=== PATIENT | male | born 1955 | race Caucasian/White ===

== ENCOUNTER 2019-03-27 18:50 | Emergency (ER) | payer OTHER ==
[~2019-03-27] VITALS: Ht 185.4 cm; Wt 88.0 kg
[2019-03-27 19:23] LABS: ABSOLUTE NEUTROPHILS 2.7 thou/uL (1.4-8.2); BASOPHILS 0.6 % (0.0-2.0); EOSINOPHILS 2.9 % (0.0-3.0); HEMATOCRIT 43.8 % (42.0-52.0); LYMPHOCYTES 32.8 % (24.0-44.0); MCH 34.5 pg (26.0-34.0); MCHC 34.2 g/dL (28.0-37.0); MCV 100.9 fL (80.0-100.0); PLATELET COUNT 120 thou/uL (150-400); POLYS 54.7 % (36.0-66.0); RBC 4.34 mil/uL (4.50-6.00); RDW 12.9 % (10.5-14.5); WBC 4.9 thou/uL (4.0-11.0)
[2019-03-27 19:23] LABS: URINE BILIRUBIN NEGATIVE (Negative); URINE BLOOD NEGATIVE (Negative); URINE CLARITY CLEAR; URINE COLOR YELLOW; URINE GLUCOSE-RANDOM* NEGATIVE (Negative); URINE KETONES NEGATIVE (Negative); URINE LEUKOCYTES NEGATIVE (Negative); URINE NITRITE NEGATIVE (Negative); URINE PROTEIN (DIPSTICK) NEGATIVE (Negative); URINE UROBILINOGEN 0.2 E.U./dl (0.2-1.0)
[2019-03-27 19:26] LABS: ANION GAP 13 mmol/L (7-16); BUN 16 mg/dL (7-18); CALCIUM 8.6 mg/dL (8.5-10.1); CHLORIDE 100 mmol/L (98-107); CO2 23 mmol/L (21-32); GLUCOSE 130 mg/dL (74-106); POTASSIUM 3.8 mmol/L (3.5-5.1); SODIUM 136 mmol/L (136-145)
[2019-03-27 19:36] LABS: ALBUMIN 3.6 g/dL (3.4-5.0); TOTAL BILIRUBIN 0.4 mg/dL (<0.1-1.0); TOTAL PROTEIN 6.6 g/dL (6.4-8.2); TROPONIN-I <0.06 ng/mL (<0.06)
[2019-03-27 19:57] LABS: SGOT 57 U/L (15-37); SGPT 58 U/L (30-65)
[2019-03-27 21:20] VITALS: BP 146/95
== END 2019-03-27 21:20 | disposition home or self-care (01) ==
LOC: ER 18:50
PROVIDERS: Emergency Medicine
DX: K52.9 Noninfective gastroenteritis and colitis, unspecified (principal); I10 Essential (primary) hypertension; K21.9 Gastro-esophageal reflux disease without esophagitis; E78.5 Hyperlipidemia, unspecified; F41.9 Anxiety disorder, unspecified; F32.9 Major depressive disorder, single episode, unspecified; F17.200 Nicotine dependence, unspecified, uncomplicated

== ENCOUNTER 2020-03-03 17:43 | Emergency (ER) | payer OTHER ==
[~2020-03-03] VITALS: Ht 185.4 cm; Wt 83.9 kg
[2020-03-03 19:35] LABS: URINE BILIRUBIN NEGATIVE (Negative); URINE BLOOD TRACE (Negative); URINE CLARITY CLEAR; URINE COLOR YELLOW; URINE GLUCOSE-RANDOM* NEGATIVE (Negative); URINE KETONES NEGATIVE (Negative); URINE LEUKOCYTES-REFLEX NEGATIVE (Negative); URINE NITRITE-REFLEX NEGATIVE (Negative); URINE PROTEIN (DIPSTICK) NEGATIVE (Negative); URINE UROBILINOGEN 0.2 E.U./dl (0.2-1.0)
[2020-03-03 19:43] LABS: ABSOLUTE NEUTROPHILS 3.6 thou/uL (1.4-8.2); BASOPHILS 0.8 % (0.0-2.0); EOSINOPHILS 0.9 % (0.0-3.0); HEMATOCRIT 45.9 % (42.0-52.0); HEMOGLOBIN 15.6 gm/dL (14.0-18.0); LYMPHOCYTES 40.3 % (24.0-44.0); MCH 31.9 pg (26.0-34.0); MCHC 33.9 g/dL (28.0-37.0); MCV 94.1 fL (80.0-100.0); MONOCYTES 5.5 % (1.0-8.0); PLATELET COUNT 254 thou/uL (150-400); POLYS 52.5 % (36.0-66.0); RBC 4.88 mil/uL (4.50-6.00); RDW 16.5 % (10.5-14.5); WBC 6.9 thou/uL (4.0-11.0)
[2020-03-03 19:56] LABS: CALCIUM 8.1 mg/dL (8.5-10.1); CREATININE 0.9 mg/dL (0.7-1.3); MAGNESIUM 2.3 mg/dL (1.8-2.4); POTASSIUM 3.8 mmol/L (3.5-5.1)
[2020-03-03 19:58] LABS: ALBUMIN 4.1 g/dL (3.4-5.0); DIRECT BILIRUBIN 0.2 mg/dL (<0.1-0.2); TOTAL BILIRUBIN 0.4 mg/dL (0.2-1.0); TOTAL PROTEIN 6.9 g/dL (6.4-8.2)
[2020-03-03] MEDS ORDERED: ZOFRAN ODT4 MG PO (21:42)
[2020-03-03 21:47] VITALS: BP 157/96
== END 2020-03-03 21:48 | disposition home or self-care (01) ==
LOC: ER 17:43
PROVIDERS: Emergency Medicine
DX: R11.2 Nausea with vomiting, unspecified (principal); R19.7 Diarrhea, unspecified; I10 Essential (primary) hypertension; K21.9 Gastro-esophageal reflux disease without esophagitis; E78.5 Hyperlipidemia, unspecified; F17.210 Nicotine dependence, cigarettes, uncomplicated

== ENCOUNTER 2020-03-10 10:00 | Emergency (ER) | payer OTHER ==
[~2020-03-10] VITALS: Ht 180.3 cm; Wt 81.7 kg
[~2020-03-10 10:00] MED LIST: ZOFRAN ODT4 MG PO
[2020-03-10 10:18] LABS: ABSOLUTE NEUTROPHILS 3.9 thou/uL (1.4-8.2); BASOPHILS 0.7 % (0.0-2.0); EOSINOPHILS 0.3 % (0.0-3.0); HEMATOCRIT 41.9 % (42.0-52.0); HEMOGLOBIN 14.2 gm/dL (14.0-18.0); LYMPHOCYTES 27.9 % (24.0-44.0); MCH 32.3 pg (26.0-34.0); MCHC 33.9 g/dL (28.0-37.0); MCV 95.3 fL (80.0-100.0); MONOCYTES 5.9 % (1.0-8.0); PLATELET COUNT 169 thou/uL (150-400); POLYS 65.2 % (36.0-66.0); RDW 17.1 % (10.5-14.5)
[2020-03-10 10:27] LABS: CREATININE 0.9 mg/dL (0.7-1.3); POTASSIUM 4.2 mmol/L (3.5-5.1)
[2020-03-10 10:33] LABS: ALBUMIN 3.6 g/dL (3.4-5.0); TOTAL BILIRUBIN 0.9 mg/dL (0.2-1.0); TOTAL PROTEIN 6.7 g/dL (6.4-8.2)
[2020-03-10] MEDS ORDERED: HYDRALAZINE 5050 MG PO (10:42)
[2020-03-10] MEDS ORDERED: LOSARTAN POTASS50 MG PO (10:42)
[2020-03-10] MEDS ORDERED: ABILIFY 5 MG TAB5 MG PO (10:42)
[2020-03-10] MEDS ORDERED: FLEXERIL PO (10:43)
[2020-03-10] MEDS ORDERED: CARVEDILOL25 MG PO (10:43)
[2020-03-10] MEDS ORDERED: LIPITOR 20 MG T20 M1 PO (10:44)
[2020-03-10] MEDS ORDERED: GABAPENTIN600 M1 PO (10:44)
[2020-03-10] MEDS ORDERED: FLUOXETINE HCL20 M1 PO (10:44)
[2020-03-10] MEDS ORDERED: OMEPRAZOLE40 MG PO (10:45)
[2020-03-10 11:43] VITALS: BP 157/87
== END 2020-03-10 11:44 | disposition home or self-care (01) ==
LOC: ER 10:00
PROVIDERS: Student in an Organized Health Care Education/Training Program
DX: F10.129 Alcohol abuse with intoxication, unspecified (principal); R11.2 Nausea with vomiting, unspecified; I10 Essential (primary) hypertension; K21.9 Gastro-esophageal reflux disease without esophagitis; E78.5 Hyperlipidemia, unspecified; F17.210 Nicotine dependence, cigarettes, uncomplicated; Z79.899 Other long term (current) drug therapy; Y90.5 Blood alcohol level of 100-119 mg/100 ml

== ENCOUNTER 2020-04-01 17:50 | Emergency (ER) | payer OTHER ==
[~2020-04-01] VITALS: Ht 185.4 cm; Wt 83.9 kg
[~2020-04-01 17:50] MED LIST changes: +ABILIFY 5 MG TAB5 MG PO; +CARVEDILOL25 MG PO; +FLEXERIL PO; +FLUOXETINE HCL20 M1 PO; +GABAPENTIN600 M1 PO; +HYDRALAZINE 5050 MG PO; +LIPITOR 20 MG T20 M1 PO; +LOSARTAN POTASS50 MG PO; +OMEPRAZOLE40 MG PO
[2020-04-01 19:01] LABS: ABSOLUTE NEUTROPHILS 4.4 thou/uL (1.4-8.2); BASOPHILS 0.8 % (0.0-2.0); HEMATOCRIT 39.7 % (42.0-52.0); HEMOGLOBIN 13.8 gm/dL (14.0-18.0); MCH 33.1 pg (26.0-34.0); MCHC 34.7 g/dL (28.0-37.0); MCV 95.5 fL (80.0-100.0); MONOCYTES 6.8 % (1.0-8.0); PLATELET COUNT 254 thou/uL (150-400); POLYS 64.4 % (36.0-66.0); RBC 4.16 mil/uL (4.50-6.00); RDW 16.7 % (10.5-14.5); WBC 6.9 thou/uL (4.0-11.0)
[2020-04-01 19:09] LABS: ANION GAP 14 mmol/L (7-16); BUN 18 mg/dL (7-18); CALCIUM 7.9 mg/dL (8.5-10.1); CHLORIDE 108 mmol/L (98-107); CO2 22 mmol/L (21-32); GLUCOSE 101 mg/dL (74-106); SODIUM 144 mmol/L (136-145)
[2020-04-01 19:16] LABS: ALBUMIN 3.6 g/dL (3.4-5.0); SALICYLATE 4.9 mg/dL (2.8-20.0); SGOT 32 U/L (15-37); SGPT 50 U/L (30-65); TOTAL BILIRUBIN 0.4 mg/dL (0.2-1.0); TOTAL PROTEIN 6.6 g/dL (6.4-8.2)
[2020-04-01 20:33] LABS: URINE BILIRUBIN NEGATIVE (Negative); URINE BLOOD NEGATIVE (Negative); URINE CLARITY CLEAR; URINE COLOR YELLOW; URINE GLUCOSE-RANDOM* NEGATIVE (Negative); URINE KETONES NEGATIVE (Negative); URINE LEUKOCYTES-REFLEX NEGATIVE (Negative); URINE NITRITE-REFLEX NEGATIVE (Negative); URINE PROTEIN (DIPSTICK) NEGATIVE (Negative); URINE SPECIFIC GRAVITY 1.015 (1.005-1.035); URINE UROBILINOGEN 0.2 E.U./dl (0.2-1.0)
[2020-04-01 21:14] LABS: AMP/METHAMP Negative (Negative); BARBITURATES Negative (Negative); BENZODIAZEPINES Negative (Negative); COCAINE Negative (Negative); METHADONE Negative (Negative); OPIATES Negative (Negative); PCP Negative (Negative)
[2020-04-02 01:10] VITALS: BP 127/70
--- NOTE | 2020-04-02 09:05 | EKG ---
[facility] [place] [address] ELECTROCARDIOGRAM REPORT Name: SATNAM PATE [facility] [id number] Admission: 04/01/20 Attend Phys: Discharge: 04/02/20 Date of : 59 Report #: [id number] THIS REPORT FOR: cc: [facility] - Clinic physician unknown [facility] - Clinic physician unknown Dae Lowe MD [facility] ~ THIS REPORT FOR: //name// [facility] ED Test Date: 2020-04-01 Test Time: 18:59:04 Pat Name: SATNAM PATE Department: Room: 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: [facility] : 1955 Requested By: Sergio Rodríguez Order Number: [id number] MD: Dae Lowe Measurements Intervals [place] Rate: 86 P: 66 DE: 157 QRS: 68 QRSD: 91 T: 71 QT: 391 QTc: 468 Interpretive Statements Sinus rhythm Normal tracing No previous ECG available for comparison Electronically Signed On 04-02-2020 9:05:20 CDT by Dae Lowe [email or web address] <ELECTRONICALLY SIGNED> By: Dae Lowe MD, [facility] 04/02/20904 58 58 Dae Lowe MD, FAC /EPI
== END 2020-04-02 01:10 | disposition home or self-care (01) ==
LOC: ER 17:50
PROVIDERS: Physician Assistant
DX: F10.129 Alcohol abuse with intoxication, unspecified (principal); R25.1 Tremor, unspecified; I10 Essential (primary) hypertension; K21.9 Gastro-esophageal reflux disease without esophagitis; E78.5 Hyperlipidemia, unspecified; F17.210 Nicotine dependence, cigarettes, uncomplicated; Z79.899 Other long term (current) drug therapy; Y90.6 Blood alcohol level of 120-199 mg/100 ml

== ENCOUNTER 2020-04-19 16:45 | Emergency (ER) | payer OTHER ==
[~2020-04-19] VITALS: Ht 185.4 cm; Wt 81.7 kg
[2020-04-19] MEDS ORDERED: SUPER THERAVIT1 EACH PO (16:51)
[2020-04-19 17:07] LABS: BASOPHILS 0.7 % (0.0-2.0); EOSINOPHILS 1.3 % (0.0-3.0); HEMATOCRIT 43.8 % (42.0-52.0); HEMOGLOBIN 14.9 gm/dL (14.0-18.0); LYMPHOCYTES 34.6 % (24.0-44.0); MCH 32.6 pg (26.0-34.0); MONOCYTES 8.2 % (1.0-8.0); PLATELET COUNT 197 thou/uL (150-400); POLYS 55.2 % (36.0-66.0); RBC 4.56 mil/uL (4.50-6.00); RDW 16.1 % (10.5-14.5); WBC 5.4 thou/uL (4.0-11.0)
[2020-04-19 17:13] LABS: URINE BILIRUBIN NEGATIVE (Negative); URINE BLOOD NEGATIVE (Negative); URINE CLARITY CLEAR; URINE COLOR YELLOW; URINE GLUCOSE-RANDOM* NEGATIVE (Negative); URINE KETONES NEGATIVE (Negative); URINE LEUKOCYTES-REFLEX NEGATIVE (Negative); URINE NITRITE-REFLEX NEGATIVE (Negative); URINE PROTEIN (DIPSTICK) NEGATIVE (Negative); URINE SPECIFIC GRAVITY <= 1.005 (1.005-1.035); URINE UROBILINOGEN 0.2 E.U./dl (0.2-1.0)
[2020-04-19 17:24] LABS: CALCIUM 7.9 mg/dL (8.5-10.1); CREATININE 1.1 mg/dL (0.7-1.3); POTASSIUM 3.8 mmol/L (3.5-5.1)
[2020-04-19 17:29] LABS: ALBUMIN 3.6 g/dL (3.4-5.0); TOTAL BILIRUBIN 0.8 mg/dL (0.2-1.0)
[2020-04-19] MEDS ORDERED: PHENERGAN 25 MG25 M1 PO (18:21)
[2020-04-19 18:35] VITALS: BP 142/79
== END 2020-04-19 18:35 | disposition home or self-care (01) ==
LOC: ER 16:45
PROVIDERS: Emergency Medicine; Physician Assistant
DX: R11.2 Nausea with vomiting, unspecified (principal); F10.10 Alcohol abuse, uncomplicated; R19.7 Diarrhea, unspecified; I10 Essential (primary) hypertension; E78.5 Hyperlipidemia, unspecified; K21.9 Gastro-esophageal reflux disease without esophagitis; F17.210 Nicotine dependence, cigarettes, uncomplicated; Z79.899 Other long term (current) drug therapy; Y90.9 Presence of alcohol in blood, level not specified

== ENCOUNTER 2020-04-24 15:08 | Emergency (ER) | payer OTHER ==
[~2020-04-24] VITALS: Ht 185.4 cm; Wt 81.7 kg
[~2020-04-24 15:08] MED LIST changes: +PHENERGAN 25 MG25 M1 PO; +SUPER THERAVIT1 EACH PO
[2020-04-24 16:46] LABS: ABSOLUTE NEUTROPHILS 3.1 thou/uL (1.4-8.2); BASOPHILS 0.5 % (0.0-2.0); EOSINOPHILS 0.4 % (0.0-3.0); HEMATOCRIT 42.6 % (42.0-52.0); LYMPHOCYTES 30.9 % (24.0-44.0); MCH 33.6 pg (26.0-34.0); MCHC 35.2 g/dL (28.0-37.0); MCV 95.6 fL (80.0-100.0); MONOCYTES 7.2 % (1.0-8.0); PLATELET COUNT 138 thou/uL (150-400); RBC 4.46 mil/uL (4.50-6.00); RDW 16.6 % (10.5-14.5); WBC 5.1 thou/uL (4.0-11.0)
[2020-04-24 17:00] LABS: ANION GAP 14 mmol/L (7-16); BUN 13 mg/dL (7-18); CALCIUM 7.5 mg/dL (8.5-10.1); CHLORIDE 101 mmol/L (98-107); CO2 22 mmol/L (21-32); GLUCOSE 103 mg/dL (74-106); SODIUM 137 mmol/L (136-145)
[2020-04-24 17:09] LABS: ALBUMIN 3.2 g/dL (3.4-5.0); MAGNESIUM 2.2 mg/dL (1.8-2.4); SALICYLATE 3.9 mg/dL (2.8-20.0); SGOT 91 U/L (15-37); SGPT 54 U/L (30-65); TOTAL BILIRUBIN 1.1 mg/dL (0.2-1.0); TOTAL PROTEIN 6.3 g/dL (6.4-8.2); TROPONIN-I <0.06 ng/mL (<0.06)
[2020-04-24] MEDS ORDERED: ATIVAN2 MG PO (17:10)
[2020-04-24] MEDS ORDERED: ONDANSETRON ODT8 MG PO (17:12)
[2020-04-24 18:50] LABS: URINE BILIRUBIN NEGATIVE (Negative); URINE BLOOD NEGATIVE (Negative); URINE CLARITY CLEAR; URINE COLOR YELLOW; URINE GLUCOSE-RANDOM* NEGATIVE (Negative); URINE KETONES NEGATIVE (Negative); URINE LEUKOCYTES-REFLEX NEGATIVE (Negative); URINE NITRITE-REFLEX NEGATIVE (Negative); URINE PROTEIN (DIPSTICK) NEGATIVE (Negative); URINE SPECIFIC GRAVITY 1.015 (1.005-1.035); URINE UROBILINOGEN 0.2 E.U./dl (0.2-1.0)
[2020-04-24 18:59] LABS: AMP/METHAMP Negative (Negative); BARBITURATES Negative (Negative); BENZODIAZEPINES Negative (Negative); COCAINE Negative (Negative); METHADONE Negative (Negative); OPIATES Negative (Negative); PCP Negative (Negative)
[2020-04-24 21:19] VITALS: BP 128/83
--- NOTE | 2020-04-25 11:35 | EKG ---
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
== END 2020-04-24 21:20 | disposition home or self-care (01) ==
LOC: ER 15:08
PROVIDERS: Emergency Medicine
DX: F10.129 Alcohol abuse with intoxication, unspecified (principal); R11.2 Nausea with vomiting, unspecified; R19.7 Diarrhea, unspecified; I10 Essential (primary) hypertension; E78.5 Hyperlipidemia, unspecified; K21.9 Gastro-esophageal reflux disease without esophagitis; F17.210 Nicotine dependence, cigarettes, uncomplicated; Z79.899 Other long term (current) drug therapy; Y90.6 Blood alcohol level of 120-199 mg/100 ml